=== PATIENT | female | born 1995 ===

== ENCOUNTER 2016-06-23 18:05 | Emergency (ER) | payer SELFPAY ==
[2016-06-23 18:17] VITALS: BMI 28.1
[2016-06-23 18:21] VITALS: TEMP 98.6
[2016-06-23] MEDS ORDERED: Sodium Chloride 0.9% 1,000 ML IV STA (18:34)
--- NOTE | 2016-06-23 18:42 | ED PDOC ---
Arrival/HPI - General Chief Complaint: Female Genitourinary Time Seen by Provider: 06/23/16 18:33 Historian: Patient - History of Present Illness Narrative History of Present Illness (Text): 06/23/16 18:34 20yo female present with complaint of suprapubic abdominal pain since yesterday. States her LMP was May 01 and she had two positive home test since then. states she had vaginal bleeding few weeks ago and then had hematuria earlier today. States she noticed blood when she wiped herself after urination earlier today. Denies nausea, vomiting, diarrhea, constipation, fever, chills, any other complaint. She have not seen any OB. Past Medical History - Provider Review Nursing Documentation Reviewed: Yes - Psychiatric Hx Substance Use: No Family/Social History - Physician Review Nursing Documentation Reviewed: Yes Family/Social History: Unknown Family HX Smoking Status: Former Smoker Hx Alcohol Use: Yes Frequency of alcohol use: Socially Hx Substance Use: No Allergies/Home Meds Allergies/Adverse Reactions: Allergies No Known Allergies Allergy (Verified 06/23/16 18:17) Home Medications: Home Meds Medication Instructions Recorded Confirmed No Known Home Med 06/23/16 06/23/16 Review of Systems - Physician Review All systems were reviewed & negative as marked: Yes - Review of Systems Constitutional: Normal Eyes: Normal ENT: Normal Respiratory: Normal Cardiovascular: Normal Gastrointestinal: Abdominal Pain. absent: Constipation, Diarrhea, Nausea, Vomiting, Hematochezia, Hematemesis Genitourinary Female: absent: Dysuria, Frequency, Hematuria, Vaginal Bleeding Musculoskeletal: Normal Skin: Normal Neurological: Normal Endocrine: Normal Hemo/Lymphatic: Normal Psychiatric: Normal Physical Exam Vital Signs Reviewed: Yes Vital Signs Temp Pulse Resp BP Pulse Ox 06/23/16 22:21 78 19 133/82 100 06/23/16 20:06 81 18 132/80 99 06/23/16 18:21 98.6 F 82 16 134/78 98 Temperature: Afebrile Blood Pressure: Normal Pulse: Regular Respiratory Rate: Normal Appearance: Positive for: Well-Appearing, Non-Toxic, Comfortable Pain Distress: None Mental Status: Positive for: Alert and Oriented X 3 - Systems Exam Head: Present: Atraumatic, Normocephalic Pupils: Present: PERRL Extroacular Muscles: Present: EOMI Conjunctiva: Present: Normal Mouth: Present: Moist Mucous Membranes Neck: Present: Normal Range of Motion Respiratory/Chest: Present: Clear to Auscultation, Good Air Exchange. No: Respiratory Distress, Accessory Muscle Use Cardiovascular: Present: Regular Rate and Rhythm, Normal S1, S2. No: Murmurs Abdomen: Present: Tenderness, Normal Bowel Sounds, Other (Suprapubic tenderness) . No: Distention, Peritoneal Signs, Rebound, Guarding, McBurney's Point Tender , Rovsing's Sign Present Genitourinary/Pelvic Exam: Present: Cervical os Closed. No: Vaginal Bleeding Back: Present: Normal Inspection Upper Extremity: Present: Normal Inspection. No: Cyanosis, Edema Lower Extremity: Present: Normal Inspection. No: Edema Neurological: Present: GCS=15, CN II-XII Intact, Speech Normal Skin: Present: Warm, Dry, Normal Color. No: Rashes Psychiatric: Present: Alert, Oriented x 3, Normal Insight, Normal Concentration Medical Decision Making ED Course and Treatment: 06/26/16 13:04 Transvaginl US showed IUP at 7weeks. Cervix OS was closed and no blood was noted in vault. Result was DW the pt and she was referred to a OB - Lab Interpretations Lab Results: 06/23/16 18:35 06/23/16 18:35 Lab Results 06/23/16 20:24: Urine Color Light yellow, Urine Appearance Clear, Urine pH 6.5, Ur Specific [place] 1.010, Urine Protein Negative, Urine Glucose (UA) Negative, Urine Ketones Trace H, Urine Blood Negative, Urine Nitrate Negative, Urine Bilirubin Negative, Urine Urobilinogen 0.2, Ur Leukocyte Esterase Negative, Urine HCG, Qual Positive 06/23/16 18:35: Beta HCG, Quant [id number] H 06/23/16 18:35: Sodium 135, Potassium 3.9, Chloride 102, Carbon Dioxide 21, Anion Gap 16, BUN 10, Creatinine 0.5, Est GFR ( Amer) > 60, Est GFR (Non- Af Amer) > 60, Random Glucose 86, Calcium 9.7, Total Bilirubin 0.7, AST 23, ALT 25, Alkaline Phosphatase 28 L, Total Protein 8.0, Albumin 4.5, Globulin 3.5, Albumin/Globulin Ratio 1.3 06/23/16 18:35: PT 10.6, INR 0.98, APTT 28.1 06/23/16 18:35: WBC 9.3, RBC 4.40, Hgb 11.2 L, Hct 33.8 L, MCV 76.8 L, MCH 25.5 , MCHC 33.1, RDW 15.5 H, Plt Count 295, MPV 9.2, Gran % 70.9 H, Lymph % (Auto) 23.7, [place] % (Auto) 4.5, Eos % (Auto) 0.6 L, Baso % (Auto) 0.3, Gran # 6.56 H, Lymph # 2.2, [place] # 0.4, Eos # 0.1, Baso # 0.03 - RAD Interpretation Radiology Orders: 06/23/16 18:33 OB TRANSVAGINAL [US] Stat - Medication Orders Current Medication Orders: Discontinued Medications Sodium Chloride (Sodium Chloride 0.9%) 1,000 mls @ 999 mls/hr IV .Q1H1M STA Stop: 06/23/16 19:34 Last Admin: 06/23/16 18:43 Dose: 999 mls/hr Disposition/Present on Arrival - Present on Arrival Any Indicators Present on Arrival: No History of DVT/PE: No History of Uncontrolled Diabetes: No Urinary Catheter: No History of Decub. Ulcer: No History Surgical Site Infection Following: None - Disposition Have Diagnosis and Disposition been Completed?: Yes Diagnosis: Abdominal pain Disposition: HOME/ ROUTINE Disposition Time: 20:10 Patient Plan: Discharge Condition: STABLE Referrals: PCP,NO [Primary Care Provider] - Follow up with primary
[2016-06-23 18:50] LABS: ADD MANUAL DIFF? NO
[2016-06-23 18:54] LABS: BASO # 0.03 K/mm3 (0.0-2.0); BASO % 0.3 % (0.0-3.0); EOS # 0.1 (0.0-0.7); EOS % 0.6 % (1.5-5.0); GRAN # 6.56 (1.4-6.5); GRAN % 70.9 % (50.0-68.0); HEMATOCRIT 33.8 % (36.0-48.0); LYMPH # 2.2 (1.2-3.4); LYMPH % 23.7 % (22.0-35.0); MEAN CELL VOLUME 76.8 fL (80.0-105.0); MEAN CORPUSCULAR HEMOGLOBIN 25.5 pg (25.0-35.0); MEAN CORPUSCULAR HGB CONC 33.1 g/dl (31.0-37.0); MEAN PLATELET VOLUME 9.2 fl (7.0-11.0); MONO # 0.4 (0.1-0.6); MONO % 4.5 % (1.0-6.0); PLATELET COUNT 295 10^3/uL (120.0-450.0); RED CELL DISTRIBUTION WIDTH 15.5 % (11.5-14.5); WHITE BLOOD COUNT 9.3 10^3/ul (4.5-11.0)
[2016-06-23 19:13] LABS: ALB/GLOB RATIO 1.3 (1.1-1.8); ALKALINE PHOSPHATASE 28 U/L (38-133); ALT/SGPT 25 U/L (7-56); AST/SGOT 23 U/L (15-39); BILIRUBIN,TOTAL 0.7 mg/dL (0.2-1.3); BLOOD UREA NITROGEN 10 mg/dL (7-21); CALCIUM 9.7 mg/dL (8.4-10.5); CARBON DIOXIDE 21 mmol/L (21-33); CHLORIDE 102 mmol/L (98-107); GFR AFRICAN-AMERICAN > 60; GLUCOSE,RANDOM 86 mg/dL (70-110); INR 0.98 (0.93-1.08); PARTIAL THROMBOPLASTIN TIME 28.1 Seconds (23.7-30.8); POTASSIUM 3.9 mmol/L (3.6-5.0); SODIUM 135 mmol/L (132-148)
--- NOTE | 2016-06-23 20:00 | US ---
EXAM: US , Transvaginal CLINICAL HISTORY: 20 years old, female; Pain; complicated by abdominal or pelvic pain; Right lower quadrant; First trimester; Gestational age or lmp: 05/01/2016; ; Additional info: Abdominal pain/ TECHNIQUE: Real-time transvaginal obstetrical ultrasound of the maternal pelvis and a first trimester with image documentation. Transvaginal imaging was used for better evaluation of the fetus and adnexa. EXAM DATE/TIME: 06/23/2016 6:33 PM COMPARISON: There are no prior studies for comparison. FINDINGS: Uterus: Uterus is difficult to accurately measure. Uterus measures at least 8.6 x 4.6 x 7.7 cm. Cervix is closed. Gestation: There is a single living intrauterine gestation. There is an embryonic heart rate of 163 beats per minute Gestational sac has mean diameter 25.2 mm. A yolk sac is present, internal diameter measures 3 mm.[place] rump length measures 15.6 mm. Right ovary: Right ovary measures approximately 4.2 x 1.9 x 3.2 cm. There is a corpus luteum in the right ovary. There is a dominant follicle, 2.3 cm in maximal dimension. Left ovary: Left ovary measures approximately 3.7 x 1.7 x 1.5 cm. There are multiple small follicles. There is intraovarian blood flow. Cul-de-sac:There is no free fluid. IMPRESSION: 7 week 5 day single living intrauterine gestation, estimated date of delivery 02/04/17
[2016-06-23 20:39] LABS: PH,URINE 6.5 (4.7-8.0); URINE APPEARANCE CLEAR (CLEAR); URINE BILIRUBIN NEGATIVE (NEGATIVE); URINE BLOOD NEGATIVE (NEGATIVE); URINE COLOR LIGHT YELLOW (YELLOW); URINE GLUCOSE (UA) NEGATIVE (NEGATIVE); URINE KETONE TRACE mg/dL (NEGATIVE); URINE LEUKOCYTE ESTERASE NEGATIVE Leu/uL (NEGATIVE); URINE PROTEIN NEGATIVE mg/dL (<30 mg/dL); URINE UROBILINOGEN 0.2 E.U./dL (<1 E.U./dL)
[2016-06-23 22:22] VITALS: BP 133/82; PULSE 78; RESP 19; O2SAT 100
== END 2016-06-23 22:23 | disposition home or self-care (01) ==
LOC: ED 18:05
DX: O26.891 Other specified pregnancy related conditions, first trimester (principal); R10.9 Unspecified abdominal pain; Z3A.01 Less than 8 weeks gestation of pregnancy
CPT/HCPCS: 76817; 80053; 81003; 84702; 84703; 85025; 85610; 85730; 99284; J7040